=== PATIENT | female | born 1965 | race Caucasian/White ===

== ENCOUNTER 2025-06-02 11:00 | Emergency (ER) | payer MEDICARE, SELFPAY ==
[2025-06-02] VITALS (8 sets, daily range): BP systolic 125–149; BP diastolic 63–78; PULSE 63–90; RESP 12–19; TEMP 36.7–36.8; O2SAT 93–100; BMI 16.6
--- OUTSIDE RECORDS SUMMARY | 2025-06-02 11:23 | XMS_ITS | Clinical Summary ---
Author Organization [facility] Address [address] [place] [address] Care Team Providers Care Identification Officer Name Role Phone Onesimo Crowell MD Primary Care Provider [phone] Allergies Active Allergy Reactions Criticality Noted Date Comments Codeine Diarrhea,Nausea And Vomiting,Other (See Comments) Low 04/27/2017 Cold chills Medications pentosan polysulfate (ELMIRON) 100 mg Capsule Take 100 mg by mouth 3 times daily. Active pregabalin (LYRICA) 200 mg Capsule Take 200 mg by mouth 3 times daily. Active DULoxetine (CYMBALTA) 60 mg Capsule, Delayed Release(E.C.) Take 60 mg by mouth daily. Active OMEPRAZOLE PO Take 40 mg by mouth. Active amitriptyline (ELAVIL) 150 mg tablet Take 150 mg by mouth every evening. Active mirabegron (MYRBETRIQ) 25 mg Tablet Sustained Release 24 hr Take 25 mg by mouth daily. Reported on 03/11/2017 Active guaiFENesin (MUCINEX) 600 mg Tablet Sustained Release Take 600 mg by mouth 2 times daily. Active GLUC/CHND/OM3/DH A/EPA/FISH/STR (GLUCOSAMINE CHONDROITIN PLUS PO) Take by mouth. Reported on 03/11/2017 Active FLUTICASONE/SALM ETEROL (ADVAIR HFA IN) Take by inhalation. Active ARIPiprazole (ABILIFY) 5 mg Tablet Take 5 mg by mouth. Active ADVAIR DISKUS 250-50 mcg/dose inhaler 7 Active ibuprofen (MOTRIN) 600 mg tablet 7 Active triamcinolone (ARISTOCORT) 0.5 % cream 7 Active gabapentin (NEURONTIN) 400 mg capsule Take 400 mg by mouth 3 times daily. Active ciprofloxacin HCl (CIPRO) 500 mg tablet Take 500 mg by mouth 2 times daily. 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 03/30/2017 Family History Medical History Relation Name Comments Arthritis Other Diabetes Other Heart Disease Other High Blood Pressure Other Stroke Other Breast Cancer Paternal Aunt Cervical Cancer Neg Hx Colon Cancer Neg Hx Ovarian Cancer Neg Hx Relation Name Status Comments Father Alive Mother Alive Other Paternal Aunt Alive Social History Tobacco Use Types Packs/Day Years Used Date Smoking Tobacco: Every Day Cigarettes 1 30 Smokeless Tobacco: Never Tobacco Cessation:Ready to Q uit: Yes; Counseling Given: Yes Alcohol Use Standard Drinks/Week Comments Yes 5 (1 standard drink = 0.6 oz pur e alcohol) Comments No Sex and Gender Information Value Date Recorded Sex Assigned at Not on file Legal Sex Female 4:22 PM EST Gender Identity Not on file Sexual Orientation Not on file Occupation Industry Job Start Date Job End Date unemployed Not on file Not on file Not on file Last Filed Vital Signs Vital Sign Reading Time Taken Comments Blood Pressure 132/80 05/13/2017 10:51 AM EDT Pulse 97 04/27/2017 3:04 PM EDT Temperature 36.6 C (97.8 F) 05/13/2017 10:51 AM EDT Respiratory Rate 16 05/22/2020 10:45 AM EDT Oxygen Saturation - - Inhaled Oxygen Concentration - - Weight 54 kg (119 lb) 05/22/2020 10:45 AM EDT Height 162.6 cm (5' 4 ) 05/22/2020 10:45 AM EDT Body Mass Index 20.43 05/22/2020 10:45 AM EDT Plan of Treatment Health Maintenance Due Date Last Done Comments Cologuard 1965 Colonoscopy 1965 Colorectal Cancer Screening 1965 FIT 1965 Lipid Screening 1983 Tetanus Vaccination (Every 10 Years) 1983 Cervical Cancer Screening 1986 Hepatitis C Virus (HCV) Screening 1986 Breast Cancer Screening 2015 Pneumococcal Vaccine: 50+ Years (1 of 1 - PCV) 015 Zoster-RZV(Shingrix) (1 of 2) 2015 Depression Screening 08/02/2024 COVID-19 Vaccine (2023- season) 2025 Influenza Vaccination (#1) 2025 Insurance MEDICARE MEDICARE MEDICARE PART A [facility] [address] [place] [id number] Care Teams Identification Officer Relationship Specialty Start Date End Date Onesimo Crowell MD [address] [place] [address] PCP - General Family Medicine 09/07/16
--- OUTSIDE RECORDS SUMMARY | 2025-06-02 11:23 | XMS_ITS | Patient Health Record ---
Author Organization [facility] [place] Address [address] [facility] [address] [place], [place] [id number] Care Team Providers Care Antique Furniture Repairer Name Role Phone Ming Pressley Unavailable [phone] Allergies No Known Allergies Reason For Referral No Information Medications Medication SIG (Take, Route, Fr equency, Duration) Notes Start Date End Date Status Gabapentin Active ARIPiprazole Active Omeprazole Active Cymbalta Active Amitriptyline HCl Ac tive Biotin Active Mucinex Active B12 Active Social History Tobacco Use: Social History Observation Description Date Details (start date - stop date) Former Smoker NA - NA Social History Drugs/Alcohol: Social Info Question Answer Notes Alcohol Screen (Audit-C) Did you have a drink containing alcohol in the past year? Yes How often did you have a drink containing alcohol in the past year? Monthly or less (1 point) How many drinks did you have on a typical day when you were drinking in the past year? 1 or 2 drinks (0 point) How often did you have 6 or more drinks on one occasion in the past year? Never (0 point) Points 1 Interpretation Negative Caffeine Intake: 1-2 cups per day Tobacco Use: Social Info Question Answer Notes Tobacco Use/Smoking Are you a former smoker How long has it been since you last smoked? 1-5 years Additional Details Category Social Info Options Details Miscellaneous: Exercise: no Problems Problem Type SNOMED Code ICD Code Onset Dates Problem Status W/U Status Risk Notes Problem Hallux valgus of right foot (7171748446) Hallux valgus of right foot (M20.11) Active confirmed Plan Of Treatment Pending Test Test Name Order Date X ray : Foot, left 3v 01/05/2024 X ray : Foot, right 3v 01/05/2024 Insurance Providers Payer Name Payer Address Payer Phone Subscriber Number Group Number Insured Name Patient Relationship to Insured Coverage Start Date Coverage End Date Medicare [address] [address] [place] [phone] [id number] [place] Self - patient is the insured Medical (General) History Medical History History ICD Code foot and ankle swelling fibromyalgia callous bowel/bladder problems frequency in urination fatigue colitis Fractures Surgical History Surgery Date(Month/Year) tonsillectomy hysterectomy skin graft
--- OUTSIDE RECORDS SUMMARY | 2025-06-02 11:23 | XMS_ITS | Encounter Summary ---
Author Organization [facility] Address [address] [place] [address] Care Team Providers Care Corporate Recruiter Name Role Phone Onesimo Crowell MD Primary Care Provider [phone] Reason for Visit * Reason Comments Medications Refill Encounter Details Date Type Department Care Team (Late st Contact Info) Description 07/02/2020 Refill [facility] Physicians - Urology [place] [address] [place] [address] [place] [address] [place] [address]. [address] [place] [id number] Medications Refill Social History Tobacco Use Types Packs/Day Years Used Date Smoking Tobacco: Every Day Cigarettes 1 30 Smokeless Tobacco: Never Alcohol Use Standard Drinks/Week Comments Yes 5 [...] file Not on file Not on file documented as of this encounter Plan of Treatment Not on file documented as of this encounter Visit Diagnoses Diagnosis Urgency of urination Increased frequency of urination Urinary frequency documented in this encounter Care Teams Corporate Recruiter Relationship Specialty Start Date End Date Onesimo Crowell MD [address] [place] [address] PCP - General Family Medicine 09/07/16 documented as of this encounter
[2025-06-02 11:43] LABS: Hematocrit 37.4 % (37.0-47.0); Hemoglobin 12.1 g/dL (12.2-16.2); Immature Granulocytes % 0.3 %; Mean Corpuscular HGB Conc 32.4 g/dL (31.8-35.4); Mean Corpuscular Hemoglobin 24.8 pg (27.0-31.2); Mean Corpuscular Volume 76.8 fl (81-99); Nucleated Red Blood Cells % 0 %; Platelet Count 531 K/mm3 (142-424); Red Blood Count 4.87 M/mm3 (4.20-5.40); Red Cell Distribution Width-SD 54.8 fL; White Blood Count 7.4 K/mm3 (4.8-10.8)
--- NOTE | 2025-06-02 11:43 | PC.NURSE ---
113- received report from Bienvenido LÓPEZ, this RN taking over care for this patient.
--- NOTE | 2025-06-02 11:50 | PC.NURSE ---
patient provided with warm blanket at this time.
[2025-06-02 11:53] LABS: Microscopic, Urine URINE MICROSCOPIC (MICROSCOPIC)
[2025-06-02 12:08] LABS: Bilirubin,Urine Negative (Negative); Glucose,Urine (UA) Negative (Negative); Ketones,Urine TRACE (Negative); Leukocyte Esterase,Urine Negative (Negative); PH,Urine 7.0 (5.0-8.5); Protein,Urine TRACE (Negative); Specific Gravity, Urine 1.020 (1.005-1.030); Urobilinogen,Urine 0.2 EU/dl (0.2)
[2025-06-02 12:13] LABS: Alanine Aminotransferase 23 U/L (12-78); Albumin Level 4.2 g/dl (3.5-5.0); Albumin/Globulin Ratio 1.0 (1.1-1.8); Alkaline Phosphatase 139 U/L (38-126); Anion Gap 10.4 mEq/L (5-15); Aspartate Amino Transferase 29 U/L (14-36); Bilirubin,Total 0.4 mg/dl (0.2-1.3); Blood Urea Nitrogen 17 mg/dl (7-17); Calcium 9.1 mg/dl (8.4-10.2); Carbon Dioxide 27 mmol/L (22.0-30.0); Chloride 104 mmol/L (98-107); Creatinine Clearance Estimated 83 mL/min (50-200); Creatinine,Serum 0.50 mg/dl (0.52-1.04); Estimated Glomerular Filt Rate 126 ml/min (>60); GFR (African American) 152 ML/MIN (>60); Globulin 4.1 g/dL (1.3-3.2); Glucose 122 mg/dl (74-100); Potassium 4.4 mmoL/L (3.5-5.1); Sodium 137 mmol/L (136-145); Total Protein,Serum 8.3 g/dl (6.3-8.2)
--- NOTE | 2025-06-02 12:17 | ED_ITS ---
<Statement entered by Bhaskar Roberts MD - 06/02/25 15:22> I was consulted by the SHAKIR, and we discussed the complexity of the problems being addressed. I approved the treatment and management plan for this patient's care in the emergency department, thus performing a substantive portion of the medical decision making. Bhaskar Roberts MD, ANASTASIYA, FACEP Discharge Plan Disposition Patient Disposition: Home, Self-Care Condition: Good Prescriptions Prescriptions: New ondansetron 4 mg tablet,disintegrating 4 mg PO Q6H PRN (Reason: nausea and vomiting) Qty: 14 0RF Referrals Follow up/Referrals: Kelley Jolly PA [Primary Care Provider, Medical] - See instructions Caro Shah MD [Physician, Pulmonology] - See instructions Activity Restrictions/Add. Instructions Additional Instructions/Restrictions: Please return to the emergency department with any worsening signs or symptoms, please follow-up with the lung doctor in the upcoming days/weeks, please follow- up with your family doctor regarding your anemia and consideration and appetite stimulants for your decreased appetite. Clinical Impressions Clinical Impression: Generalized weakness, Decreased appetite, Nausea & vomiting Instructions Patient Instructions: DI for Fatigue, DI for Nausea in Adults, DI for Poor Appetite Print Language Print Language: Tajik Discharge ED Provider: Bhaskar Roberts General Adult HPI General Chief complaint: Weakness Stated complaint: vomitting Time Seen by Provider: 06/02/25 12:12 Mode of Arrival: Ambulatory Source of Information: Patient Description of Symptoms (Recalled from ER Triage Doc. by RN): pt has been increasingly short of breath and weak. unable to eat. lost 15 pounds in the last few months. spots were foind on a CT in [place] a few months ago. has an appointment with Marychuy in July. History of Present Illness HPI narrative: 60-year-old female presents to the emergency department accompanied by her aunt with a chief complaint of 2 months of generalized weakness, greater than 15 to 20 pound weight loss over the last 2 months, nausea vomiting, poor appetite, subjective fever chills and night sweats , according to patient's family at the bedside. Patient recently moved to the area from [place] in April, she tells me that she had several hospital visits in the summer, last hospital visit/admission was in March 2025, sounds like she had an episode of SVT and a cardiac ablation, she was also told that she has nodules , in her lungs, does have slated follow-up with life insurance salesperson in the upcoming months. Patient denies any chest pain admits to shortness of breath at times, worse with exertion, denies any abdominal pain, denies any hematuria melena hematochezia or hematemesis, misses some diarrhea at times, denies any constipation, denies urinary type symptomatology, denies any vaginal type symptomatology to include vaginal bleeding or vaginal discharge, denies any numbness tingling, denies any no urinary bladder or bowel dysfunction, is a current everyday smoker denies any alcohol or drug use, other past medical history is consistent with VIJI/MDD, GERD, hyperlipidemia, COPD. Initial triage vitals are unremarkable. Also of note, patient tells me that she was hospitalized in [place] , several months ago for a overdose , when asking the patient what she overdosed on patient states that she intentionally tried to overdose on her amitriptyline , states that she is better from this, adamantly denies any SI or HI currently. Please note that above description of symptoms, in this electronic medical record under categorization of recalled from ER triage doctor by RN are reflective of an initial nursing assessment, however, is not reflective of my full history and physical exam that was personally taken and clarified. Consequentially, this preceding description of symptoms, which may include the patient's categorized chief complaint in the EMR, do not reflect my personal clinical impression, and the ultimate description of history of present illness and patient stated complaints should be deferred to this section of the note. Unless stated otherwise or congruent with this section of the note, additional signs, symptoms, or incongruence should be interpreted as inaccurate with my clinical impression. Onset (ago): month(s) Related Data Previous Rx's ?Medication ?Instructions ?Recorded ondansetron 4 mg disintegrating 4 mg PO Q6H PRN nausea and 06/02/25 tablet vomiting #14 tabs Allergies Allergy/AdvReac Type Severity Reaction Status Date / Time CLASS: 04:00 - ANTIHISTAMINE Allergy Unknown Uncoded 07/20/17 14:52 DRUGS Codeine Allergy Unknown Uncoded 07/20/17 14:52 [facility] Disclaimer: The information contained in this section may have been updated after the patient was seen, as this information can be updated by other users. Social History Smoking Status: Current every day smoker alcohol intake: never current occupational status: other Travel in the last 8 weeks?: None ROS Obtained: Yes All systems reviewed & no additional complaints except as documented Physical Exam General General appearance: alert, in no apparent distress and cachectic Head Head exam: atraumatic and normocephalic Eye Eye exam: Present PERRL and EOMI ENT ENT exam: Present mucous membranes moist Neck Neck exam: Present normal inspection Chest Chest inspection: Present normal inspection and symmetric chest wall rise Respiratory Respiratory exam: Present wheezes and other (Mild diffuse wheezes throughout bilateral lung madrid); Absent normal lung sounds bilaterally or respiratory distress Cardiovascular Cardiovascular exam: Present regular rate and normal rhythm Abdominal Exam Abdominal exam: Present soft; Absent tenderness, guarding, rebound or rigidity Extremities Exam Extremities exam: Present normal inspection Neurological Exam Neurological exam: Present alert, oriented X3 and other (Generalized global weakness noted, no focal neurological deficit, no gross sensation to) Psychiatric Psychiatric exam: Present normal affect Skin Skin exam: Present warm and dry Medical Decision Making Medical Records Medical records reviewed: Yes I reviewed the patient's medical records. Screening: Per USPSTF and CDC recommendations, given the prevalence of disease in our region, it is our hospital?s policy to screen for HIV and viral Hepatitis for all patients aged 18 and over and those with ongoing risk factors. Chay Inquiry Pt receiving controlled substance: No Chay was queried for this patient: No Vital Signs: 06/02/25 11:05 06/02/25 11:14 06/02/25 11:30 Temperature 98.1 F Temperature Source Oral Pulse Rate 78 70 Pulse Rate [Right] 75 Respiratory Rate 18 Blood Pressure 149/78 H 130/72 Blood Pressure [Right Arm] 149/78 H Blood Pressure Mean 83 Blood Pressure Mean [Right Arm] 101 02 Sat by Pulse Oximetry 99 99 100 Oxygen Delivery Method Room Air Room Air 06/02/25 12:00 06/02/25 12:30 06/02/25 13:30 Temperature Temperature Source Pulse Rate 73 90 74 Pulse Rate [Right] Respiratory Rate 15 12 19 Blood Pressure 131/72 141/73 H Blood Pressure [Right Arm] Blood Pressure Mean Blood Pressure Mean [Right Arm] 02 Sat by Pulse Oximetry 99 99 100 Oxygen Delivery Method Room Air Room Air Room Air Lab Data Lab results reviewed: Yes I reviewed the patient's lab results. Lab Results 06/02/25 11:22: WBC 7.4, RBC 4.87, Hgb 12.1 L, Hct 37.4, MCV 76.8 L, MCH 24.8 L, MCHC 32.4, RDW 20.0 H, Plt Count 531 H, MPV 9.2, Neut % (Auto) 66.1, Lymph % (Auto) 21.8, [place] % (Auto) 10.6 H, Eos % (Auto) 0.5, Baso % (Auto) 0.7, Neut # (Auto) 4.9, Lymph # (Auto) 1.6, [place] # (Auto) 0.8, Eos # (Auto) 0.0, Baso # (Auto) 0.1, Sodium 137, Potassium 4.4, Chloride 104, Carbon Dioxide 27, Anion Gap 10.4, BUN 17, Creatinine 0.50 L, Estimated Creat Clear 83, Estimated GFR 126, Est GFR ( Amer) 152, Glucose 122 H, Calcium 9.1, Magnesium 1.9, Total Bilirubin 0.4, AST 29, ALT 23, Alkaline Phosphatase 139 H, Troponin I < 0.01, NT-Pro-B Natriuret Pep 132 H, Total Protein 8.3 H, Albumin 4.2, Globulin 4.1 H, Albumin/Globulin Ratio 1.0 L, TSH 0.77, Thyroxine (T4) 9.8, HCV Ab SKYLER w/Rflx PCR Qn Negative, HIV Ag/Ab Combo Qual Negative 06/02/25 11:45: Urine Color Dark yellow, Urine Appearance Clear, Urine pH 7.0, Ur Specific [place] 1.020, Urine Protein Trace, Urine Glucose (UA) Negative, Urine Ketones Trace, Urine Blood Negative, Urine Nitrate Negative, Urine Bilirubin Negative, Urine Urobilinogen 0.2, Ur Leukocyte Esterase Negative, Urine RBC None, Urine WBC 3-5, Ur Squamous Epith Cells 3-5, Urine Bacteria 1+, Urine Mucus 4+ 06/02/25 11:22 06/02/25 11:22 Orders (Tests/Meds): ED MEDICATIONS Discontinued Medications Generic Name Dose Route Start Last Admin Trade Name Freq PRN Reason Stop Dose Admin Sodium Chloride 1,000 mls @ 999 mls/hr 06/02/25 12:33 06/02/25 12:37 Sod Chlor 0.9% 1000ml Bag IV 06/02/25 13:33 999 mls/hr .Q1H1M ONE Administration Iopamidol 75 ml 06/02/25 13:07 06/02/25 13:09 Iopamidol-370 (76%);100ml Bottle IV 06/02/25 13:08 75 ml ONCE ONE Administration Iopamidol 65 ml 06/02/25 13:07 06/02/25 13:09 Iopamidol-300 (61%) 100ml Vial IV 06/02/25 13:08 65 ml ONCE ONE Administration Protocol Ondansetron HCl 4 mg 06/02/25 12:32 06/02/25 12:37 Ondansetron 4mg/2ml Vial IV 06/02/25 12:33 4 mg ONCE ONE Administration Sodium Chloride 10 ml 06/02/25 13:07 06/02/25 13:09 Sodium Chloride 0.9% 10ml Syr (Rad Only) IV 06/02/25 13:08 10 ml ONCE ONE Administration ORDERS Category Date Time Status CT abdomen pelvis w con Stat Cat Scan 06/02/25 12:[address] chest w con Stat Cat Scan 06/02/25 12:[address] head/brain w con Stat Cat Scan 06/02/25 12:32 Completed Complete Blood Count Auto Diff Stat Lab 06/02/25 11:22 Completed Comprehensive Metabolic Panel Stat Lab 06/02/25 11:22 Completed HIV Combo Stat Lab 06/02/25 11:22 Completed Hepatitis C Ab Qual. W/ RFX Stat Lab 06/02/25 11:22 Completed Magnesium Stat Lab 06/02/25 11:22 Completed NT Pro Brain Natriuretic Pep. Stat Lab 06/02/25 11:22 Completed T4 (Thyroxine) Stat Lab 06/02/25 11:22 Completed TSH [Thyroid Stimulating Hormone] Stat Lab 06/02/25 11:22 Completed Troponin I Q3H Lab 06/02/25 15:45 Ordered Troponin I Q3H Lab 06/02/25 18:45 Ordered Troponin I Stat Lab 06/02/25 11:22 Completed Urinalysis and Microscopic Stat Lab 06/02/25 11:45 Completed Medical Decision Narrative: 60-year-old female presents emergency department with generalized weakness nausea vomiting poor appetite weight loss over the last 2 months, differential diagnose include but not limited to, cardiac arrhythmia, electrolyte disturbance, hypovolemia, malignancy, among others. I discussed this patient's case with the attending physician Dr. Roberts Will obtain basic laboratory studies magnesium level TSH and reflex T4, UA, proBNP troponin, EKG, CT head with contrast CT abdomen pelvis with contrast, CT chest with contrast, will give 4 mg Zofran for nausea, will give 1 L IV NS. CBC is notable for MCV at 76.8, unsure of chronicity, hemoglobin hematocrit are stable. CMP is unremarkable with the exception of a mildly elevated ALP UA is unremarkable UA is notable for 3-5 WBCs, 35 squamous epithelial 1+ bacteria with 4+ urine mucus. proBNP is mildly elevated at 132, troponin within normal limits at less than 0.01 T4 within normal limit limits I reviewed the patient's CT head with contrast along the corresponding radiologic report, no acute intracranial abnormality. I reviewed the patient's CT chest with contrast along the corresponding radiologic report, no evidence of metastatic disease of the chest no acute cardiopulmonary process there is moderate central lobar emphysema. I reviewed the patient's CT head and pelvis with contrast along the corresponding radiologic report, there is no acute abdominal or pelvic pathology, no visible metastatic disease to the abdomen pelvis there is a hepatic steatosis TSH within normal limits I discussed the results with the patient and family the bedside, patient and family and agree with the current discharge plan/treatment plan, patient will follow-up with her PCP to consider appetite stimulant, this could be in the setting of her moderate emphysema and current everyday smoking, patient does have some degree of anemia, unsure of chronicity could contribute to her fatigue and generalized weakness as well recommend follow-up PCP for this. Strict ED return precautions given. Patient family voiced understanding. Will prescribe 4 mg p.o. sublingual Zofran as needed for nausea and vomiting. Critical Care Critical Care Time Critical Care Time: No
[2025-06-02 12:22] LABS: Color,Urine Dark Yellow (Yellow)
--- NOTE | 2025-06-02 12:30 | CT_ITS ---
PROCEDURE INFORMATION: Exam: CT Abdomen And Pelvis With Contrast Exam date and time: 06/02/2025 1:10 PM Age: 60 years old Clinical indication: Condition or disease; Other: Generalized weakness, metastatic workup TECHNIQUE: Imaging protocol: Computed tomography of the abdomen and pelvis with contrast. Radiation optimization: All CT scans at this facility use at least one of these dose optimization techniques: automated exposure control; mA and/or kV adjustment per patient size (includes targeted exams where dose is matched to clinical indication); or iterative reconstruction. Contrast material: ISOVUE; Contrast volume: 75 ml; Contrast route: IV; COMPARISON: CT CHEST W CON 06/02/2025 1:10 PM FINDINGS: Liver: There is diffuse fatty infiltration of the liver. There is an elongated left hepatic lobe extending into the left upper quadrant of the abdomen. The liver is otherwise unremarkable. Gallbladder and biliary ducts: The gallbladder and biliary tree are unremarkable. Pancreas: Pancreas is unremarkable. The pancreatic duct is normal in size. Spleen: Spleen is unremarkable. Adrenal glands: The adrenal glands are unremarkable. Kidneys and ureters: The kidneys and ureters are unremarkable. Stomach and bowel: The stomach and bowel are unremarkable. Appendix: The appendix is normal. Intraperitoneal space: The intraperitoneal space is unremarkable. No free air. No significant fluid collection. Vasculature: The vasculature is unremarkable accounting for age. No abdominal aortic aneurysm. Lymph nodes: No enlarged lymph nodes. Urinary bladder: The urinary bladder is unremarkable. Reproductive: Status post hysterectomy. Bones/joints: There is mild spondylosis. Soft tissues: The remaining soft tissue is unremarkable. IMPRESSION: 1. There is no acute abdominal or pelvic pathology. 2. No visible metastatic disease of the abdomen or pelvis. 3. There is hepatic steatosis.
--- NOTE | 2025-06-02 12:31 | CT_ITS ---
PROCEDURE INFORMATION: Exam: CT Chest With Contrast; Diagnostic Exam date and time: 06/02/2025 1:10 PM Age: 60 years old Clinical indication: Condition or disease; Other: Known nodules, metastatic workup TECHNIQUE: Imaging protocol: Diagnostic computed tomography of the chest with contrast. Radiation optimization: All CT scans at this facility use at least one of these dose optimization techniques: automated exposure control; mA and/or kV adjustment per patient size (includes targeted exams where dose is matched to clinical indication); or iterative reconstruction. Contrast material: ISOVUE; Contrast volume: 75 ml; Contrast route: IV; COMPARISON: CT ABDOMEN PELVIS W CON 06/02/2025 1:10 PM FINDINGS: Lungs: There is moderate centrilobular emphysema. Small calcified left lung granuloma. No additional pulmonary nodules. Pleural spaces: Pleural spaces are unremarkable. No pneumothorax. No pleural effusion. Heart: The heart is unremarkable. No cardiomegaly. No pericardial effusion. Coronary arteries: There are mild atherosclerotic calcifications of the coronary arteries. Esophagus: The esophagus is unremarkable. Lymph nodes: No enlarged lymph nodes. Vasculature: The aorta is unremarkable. No aneurysm. Pulmonary arteries are unremarkable. Bones/joints: There is mild thoracic spondylosis. Soft tissues: There is breast attenuation of the lower lung [place] on the frontal projection. ImplantsThe remaining soft tissue is unremarkable. IMPRESSION: 1. No evidence of metastatic disease of the chest. 2. No acute cardiopulmonary process. 3. There is moderate centrilobular emphysema. COMMENTS: The presence of pulmonary emphysema on CT is an independent risk factor for lung cancer. In the absence of a history or active diagnosis of lung cancer, it is recommended that this patient with emphysema be evaluated for enrollment in a low dose CT lung cancer screening program.
--- NOTE | 2025-06-02 12:32 | CT_ITS ---
PROCEDURE INFORMATION: Exam: CT Head With Contrast Exam date and time: 06/02/2025 1:07 PM Age: 60 years old Clinical indication: Other: Generalized weakness, metastatic workup TECHNIQUE: Imaging protocol: Computed tomography of the head with intravenous contrast. Radiation optimization: All CT scans at this facility use at least one of these dose optimization techniques: automated exposure control; mA and/or kV adjustment per patient size (includes targeted exams where dose is matched to clinical indication); or iterative reconstruction. Contrast material: ISOVUE 300; Contrast volume: 65 ml; Contrast route: IV; COMPARISON: No relevant prior studies available. FINDINGS: Brain: Unremarkable white matter. No mass effect. No abnormal enhancing lesions. Cerebral ventricles: No ventriculomegaly. Bones/joints: No acute fracture. The maxilla is edentulous. Paranasal sinuses: Visualized sinuses are unremarkable. No fluid levels. Mastoid air cells: Visualized mastoid air cells are well aerated. Soft tissues: Unremarkable. IMPRESSION: No acute intracranial abnormality.
[2025-06-02] MEDS: 0.9 % SODIUM CHLORIDE 1000ML 1,000 ML 999 ML IV (12:37)
[2025-06-02] MEDS: ONDANSETRON 4MG/2ML VIAL 4 MG IV (12:37)
--- NOTE | 2025-06-02 12:47 | ECG_ITS ---
APPROVED REPORT Exam: Resting ECG HR:66 bpm ECG Measurements Heart Rate 66 AXES NC 104 P 47 QRSd 77 QRS 87 QT 431 T 75 QTc 444 Conclusion SINUS RHYTHM WITH SHORT NC INTERVAL WITH OCCASIONAL SUPRAVENTRICULAR PREMATURE COMPLEXES BORDERLINE ECG UNCONFIRMED REPORT Electronically signed by : Oscar Roberts, 06/02/2025 15:24:12
[2025-06-02] MEDS: IOPAMIDOL-370 (76%);100ML BOTTLE 75 ML IV (13:09)
[2025-06-02] MEDS: SODIUM CHLORIDE 0.9% 10ML SYR (RAD ONLY) 10 ML IV (13:09)
[2025-06-02] MEDS: IOPAMIDOL-300 (61%) 100ML VIAL 65 ML IV (13:09)
[2025-06-02 13:26] LABS: Magnesium 1.9 mg/dl (1.6-2.3)
[2025-06-02 13:36] LABS: Hepatitis C Ab Qual. W/ RFX NEGATIVE (Negative)
[2025-06-02 13:36] LABS: Bacteria,Urine 1+ /lpf
[2025-06-02 13:37] LABS: Mucus,Urine 4+ /lpf
[2025-06-02 13:39] LABS: NT Pro Brain Natriuretic Pep. 132 pg/mL (0-125)
[2025-06-02 13:41] LABS: Troponin I < 0.01 ng/ml (0.00-0.034)
[2025-06-02 13:44] LABS: T4 (Thyroxine) 9.8 ug/dl (5.53-11.0)
[2025-06-02 13:57] LABS: Thyroid Stimulating Hormone 0.77 uIU/mL (0.465-4.68)
== END 2025-06-02 14:19 | disposition home or self-care (01) ==
PROVIDERS: Physician Assistant; Emergency Provider Student in an Organized Health Care Education/Training Program; PCP Physician Assistant
DX: R06.2 Wheezing (principal); R11.2 Nausea with vomiting, unspecified; R53.1 Weakness; R63.8 Other symptoms and signs concerning food and fluid intake; F17.210 Nicotine dependence, cigarettes, uncomplicated
CPT/HCPCS: 70460; 71260; 74177; 80053; 81001; 83735; 83880; 84436; 84443; 84484; 85025; 86803; 87389; 93005; 96361; 96374; 99285; J2405; J7030; Q9967

== ENCOUNTER 2025-06-22 15:23 | Emergency (ER) | payer MEDICARE, SELFPAY ==
[2025-06-22 15:30] VITALS: BP 123/59; PULSE 81; RESP 15; TEMP 36.8; O2SAT 98; BMI 16.2
--- NOTE | 2025-06-22 15:47 | ED_ITS ---
<Statement entered by Ky Newton DO - 06/22/25 18:00> I was consulted by the SHAKIR, and we discussed the complexity of problems being addressed. I approved the treatment and management plan for this patient's care in the emergency department, thus performing a substantive portion of the medical decision making. I independently evaluated this patient as well. She has chronic osteoarthritis of results and limitation in range of motion of her thumbs bilaterally. I have tested her range of motion in both her left and right thumb and she has equal and symmetric abduction, adduction, pincer music arranger mechanism, and opposition. Laceration was repaired and patient was counseled on return precautions. Ky Newton DO Discharge Plan Disposition Patient Disposition: Home, Self-Care Condition: Good Prescriptions Prescriptions: No Action ondansetron 4 mg tablet,disintegrating 4 mg PO Q6H PRN (Reason: nausea and vomiting) Qty: 14 0RF Referrals Follow up/Referrals: Kelley Jolly PA [Referring, Medical] - See instructions Activity Restrictions/Add. Instructions Additional Instructions/Restrictions: Please clean the laceration with soap and water 3 times a day and apply antibacterial ointment. The stitches should stay in for 10 to 12 days. Wmsk-sar-bpsjyqi ointment such as Neosporin works on you may begin to apply sunscreen after day 5 to help prevent scarring. These may be taken out by your primary care provider, an urgent care, or any location. You do not have to return to the emergency department to have the stitches removed. Please follow-up with your primary care provider to discuss this laceration and today's emergency department visit. Return to the emergency department with any worsening of this laceration including swelling around the area, sudden increase in bleeding, or any other emergent medical complaint or concern. Clinical Impressions Clinical Impression: Laceration, Injury of hand, right, Hand pain, right Instructions Patient Instructions: DI for Laceration Repair Print Language Print Language: Slovak Discharge ED Provider: Ky Newton General Adult HPI General Chief complaint: Wound/Laceration Stated complaint: AO 06/22 Cut Right Hand on Tin Time Seen by Provider: 06/22/25 15:33 Mode of Arrival: Ambulatory Source of Information: Patient Limitations: No Limitations History of Present Illness HPI narrative: Patient is a pleasant 60-year-old female who presents to the emergency department after cutting her right hand at approximately 3 PM this afternoon. Patient was taking down Thanksgiving decorations and cut the back of her hand near her thumb on a pumpkin tin. Patient denies any other injuries, denies any numbness or tingling. Denies any fever or other recent illness and denies any other complaints at this time; denies chest pain, shortness of breath. Onset (ago): minute(s) Related Data Previous Rx's ?Medication ?Instructions ?Recorded ondansetron 4 mg disintegrating 4 mg PO Q6H PRN nausea and 06/02/25 tablet vomiting #14 tabs Allergies Allergy/AdvReac Type Severity Reaction Status Date / Time CLASS: 04:00 - ANTIHISTAMINE Allergy Unknown Uncoded 07/20/17 14:52 DRUGS Codeine Allergy Unknown Uncoded 07/20/17 14:52 [facility] Disclaimer: The information contained in this section may have been updated after the patient was seen, as this information can be updated by other users. Social History (Updated 06/02/25 @ 14:08 by DOMINIQUE Edwards) Smoking Status: Current every day smoker alcohol intake: never current occupational status: other Travel in the last 8 weeks?: None Have you lived/traveled outside [place] in past 30 days?: No Contact w/someone who lives/traveled outside US past 30 days?: No Exposure to someone with infectious disease in past 14 days?: No Do you have a fever (greater than 100.4 F or 38 C)?: No Have you tested positive for COVID-19?: No Exposed to someone with COVID-19 in past 14 days?: No Do you have a sore throat?: No Do you have a cough?: No Do you have any weakness?: No Do you have any diarrhea?: No Are you experiencing any unusual bleeding?: No Do you have any muscle aches/pain?: No Do you have any abdominal pain?: No Are you experiencing loss of taste or smell?: No ROS Obtained: Yes Systems reviewed as appropriate & no additional complaints except as documented Physical Exam General General appearance: alert and in no apparent distress Head Head exam: atraumatic and normocephalic Eye Eye exam: Present normal appearance, PERRL and EOMI Neck Neck exam: Present normal inspection, full ROM and trachea midline Chest Chest inspection: Present normal inspection and symmetric chest wall rise; Absent tenderness Respiratory Respiratory exam: Present normal lung sounds bilaterally; Absent respiratory distress, wheezes or stridor Cardiovascular Cardiovascular exam: Present regular rate, normal rhythm, +S1 and +S2 Abdominal Exam Abdominal exam: Present soft; Absent distention, tenderness or guarding Expanded Upper Extremity Exam Lac to right hand: Hand exam: Present laceration Hand L/R back image: 2 1. Laceration Neurological Exam Neurological exam: Present alert and oriented X3 Psychiatric Psychiatric exam: Present normal affect and normal mood Skin Skin exam: Present warm and dry Medical Decision Making Medical Records Screening: Per USPSTF and CDC recommendations, given the prevalence of disease in our region, it is our hospital?s policy to screen for HIV and viral Hepatitis for all patients aged 18 and over and those with ongoing risk factors. Chay Inquiry Pt receiving controlled substance: No Vital Signs: 06/22/25 15:30 06/22/25 16:30 06/22/25 17:00 Temperature 98.2 F 98.2 F Temperature Source Oral Oral Pulse Rate 69 69 Pulse Rate [Right Radial] 81 Respiratory Rate 15 18 Blood Pressure 117/60 117/60 Blood Pressure [Right Arm] 123/59 L Blood Pressure Mean [Right Arm] 80 Blood Pressure Source Automatic Cuff Blood Pressure Source [Right Arm] Automatic Cuff Blood Pressure Position Sitting Blood Pressure Position [Right Arm] Sitting 02 Sat by Pulse Oximetry 98 99 Oxygen Delivery Method Room Air Room Air Room Air Orders (Tests/Meds): ED MEDICATIONS Discontinued Medications Generic Name Dose Route Start Last Admin Trade Name Freq PRN Reason Stop Dose Admin Tetanus/Reduced Diphtheria/Acell Pertussis 0.5 ml 06/22/25 15:46 06/22/25 16:27 Tet/Diphth/Pert-Adult 0.5ml Syringe IM 06/22/25 15:47 0.5 ml .ONCE ONE Administration Medical Decision Narrative: In summary patient is an pleasant 60-year-old female who presents to the emergency department for evaluation of laceration to her right hand. Patient is hemodynamically stable upon arrival, afebrile. Patient has 2 cm horizontal laceration proximal to her MCP thumb joint. Patient has full range of motion in thumb essentially ruling out tendon injury and is positive for 2 point discrimination. Otherwise unremarkable physical exam; alert and oriented, nontoxic and afebrile, GCS 15. Differential diagnosis includes tendon injury, laceration, abrasion. Initial workup will be conducted with clinical exam at bedside. Initial interventions include lidocaine and Hibiclens to clean the area, and then laceration repair with 4 sutures. Upon repeat evaluation bleeding was completely controlled with sutures. Given this, the patient is appropriate for discharge. Plan of care is for patient to be discharged to home. Instructions for suture removal discussed at bedside and in discharge instructions. Patient verbalized understanding of and is amenable with this plan of care. Return precautions discussed and discharge instructions. Labs, imaging, and EKG considered but not clinically indicated to this patient's complaint and presentation. Patient has no concerns for any social determinants of health. She has no housing or food insecurity, states no concerns for safety, and has family support. Critical Care Critical Care Time Critical Care Time: No
--- OUTSIDE RECORDS SUMMARY | 2025-06-22 16:01 | XMS_ITS | Patient Health Record ---
Author Organization Dr [facility] Mar[facility] [place] Address [address] [place], [place] [id number] Care Team Providers Care Stitcher Around Name Role Phone Ming Pressley Unavailable [phone] Allergies No Known Allergies Reason For Referral [...] Notes Problem Hallux valgus of right foot ([id number]) Hallux valgus of right foot (M20.11) Active confirmed Plan Of Treatment Pending Test Test Name Order Date X ray : Foot, left 3v 01/05/2024 X ray : Foot, right 3v 01/05/2024 Insurance Providers Payer Name Payer Address Payer Phone Subscriber Number Group Number Insured Name Patient Relationship to Insured Coverage Start Date Coverage End Date Medicare [address] [address] [place] [address] [id number] [place] Self - patient is the insured Medical (General) History Medical History History ICD Code foot and ankle swelling fibromyalgia callous bowel/bladder problems frequency in urination fatigue colitis Fractures Surgical History Surgery Date(Month/Year) tonsillectomy hysterectomy skin graft
[2025-06-22] MEDS: TET/DIPHTH/PERT-ADULT 0.5ML SYRINGE 0.5 ML IM (16:27)
[2025-06-22 16:30] VITALS: BP 117/60; PULSE 69; O2SAT 99
[2025-06-22 17:00] VITALS: BP 117/60; PULSE 69; RESP 18; TEMP 36.8; O2SAT 99
== END 2025-06-22 17:01 | disposition home or self-care (01) ==
PROVIDERS: Emergency Provider Student in an Organized Health Care Education/Training Program; PCP Nurse Practitioner
DX: S61.411A Laceration without foreign body of right hand, initial encounter (principal); M79.641 Pain in right hand; W26.8XXA Contact with other sharp object(s), not elsewhere classified, initial encounter
CPT/HCPCS: 12001; 90471; 90715; 99283

== ENCOUNTER 2025-07-10 14:16 | Outpatient (CLI) | payer MEDICARE, MEDICAID, SELFPAY ==
[2025-07-10 16:28] LABS: C-Reactive Protein 0.5 mg/L (0-4)
[2025-07-12 13:29] LABS: Antinuclear Antibodies (ANA) Negative (Negative)
[2025-07-14 03:36] LABS: Anti-CCP Abs,IgG and IgA (RDL) < 20 Units (<20)
== END 2025-07-10 23:59 | disposition home or self-care (01) ==
LOC: LAB 14:18
PROVIDERS: PCP Nurse Practitioner; Visit Provider Internal Medicine Pulmonary Disease
DX: J84.9 Interstitial pulmonary disease, unspecified (principal)
CPT/HCPCS: 36415; 86140; 86200; 86480